=== PATIENT | male | born 1995 | race Caucasian/White ===

== ENCOUNTER 2019-03-09 12:35 | Inpatient (IN) | payer OTHER ==
[~2019-03-09] VITALS: Ht 170.1 cm; Wt 65.1 kg
[~2019-03-09 12:35] MED LIST: CHLORDIAZEPOXID25 MG PO
[2019-03-09 13:49] VITALS: BP 109/64
--- NOTE | 2019-03-09 14:13 | NUR ---
PATIENT MEETS [facility]. CINA=15. PATIENT IS LOOKING FOR RESIDENTIAL TREATENT FOR HIS AFTERCARE PLAN. [facility] STAFF PROVIDED PATIENT WITH REFERRAL OPTIONS. MARY SARKAR B.A. MAINTAINABILITY ENGINEER
--- NOTE | 2019-03-09 14:32 | NUR ---
23 year old MALE admitted to room # 518 for stabilization. 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 Compliant with admission procedure. Patient denies any anxiety, but is unable to sit still, taps toes to floor continuously, looks about room, unable to focus eyes on nurse during interview. See assessment forms for additional information about patient status.
[2019-03-09 14:45] LABS: BASO % 0.5 % (0.0-1.0); EOS # 0.1 10*3/uL (0.0-0.4); EOS % 0.6 % (1.0-4.0); HEMATOCRIT 36.7 % (42.0-52.0); HEMOGLOBIN 11.4 g/dl (14.0-18.0); LYMPH # 1.8 10*3/uL (1.3-4.4); LYMPH % 21.5 % (27.0-41.0); MEAN CORPUSCULAR HGB 26.4 pg (27.0-31.0); MEAN CORPUSCULAR HGB CONC 31.1 g/dl (33.0-37.0); MONO % 11.9 % (3.0-9.0); NEUT # 5.5 10*3/uL (2.3-7.9); NEUT % 65.4 % (47.0-73.0); PLATELET COUNT AUTOMATED 201 10*3/uL (130-400); RED BLOOD COUNT 4.32 10*6/uL (4.50-5.90); RED CELL DISTRI WIDTH 15.1 % (0-14.5); WHITE BLOOD COUNT 8.4 10*3/uL (4.8-10.8)
[2019-03-09 14:59] LABS: ALBUMIN 3.6 gm/dl (3.1-4.5); ALKALINE PHOSPHATASE 57 U/L (45-117); BUN 7 mg/dl (7-24); CHLORIDE 106 mmol/L (98-107); CREATININE 0.77 mg/dL (0.70-1.30); POTASSIUM 3.6 mmol/L (3.5-5.1); SGOT/AST 19 IU/L (3-35); SGPT/ALT 23 U/L (12-78); SODIUM 140 mmol/L (136-145); TOTAL PROTEIN 7.4 gm/dL (6.4-8.2)
[2019-03-09 15:00] LABS: ETHYL ALCOHOL < 3.0 mg/dl (<3)
[2019-03-09 16:00] VITALS: BP 117/62
[2019-03-09 16:07] LABS: BILIRUBIN NEGATIVE (NEGATIVE); BLOOD NEGATIVE (NEGATIVE); CLARITY CLEAR (CLEAR); COLOR YELLOW (YELLOW); GLUCOSE NEGATIVE (NEGATIVE); KETONE NEGATIVE (NEGATIVE); LEUKO ESTERASE NEGATIVE (NEGATIVE); NITRITE NEGATIVE (NEGATIVE); PH 6.5 (5.0-9.0); UROBILINOGEN 0.2 E.U./dl (0.2-1.0)
[2019-03-09 16:11] LABS: URINE AMPHETAMINES < 1000 (1000ng/ml); URINE BARBITURATES > 200 (200ng/ml); URINE BENZODIAZEPINES < 200 (200ng/ml); URINE CANNABINOIDS (THC) < 50 (50ng/ml); URINE COCAINE > 300 (300ng/ml); URINE METHADONE < 300 (300ng/ml); URINE OPIATES > 300 (300ng/ml)
[2019-03-09 16:12] LABS: URINE PHENCYCLIDINE < 25 (25ng/ml)
[2019-03-09 16:43] LABS: EPITHELIAL CELLS 0-2; MUCOUS 2+
[2019-03-09 16:44] LABS: WBC 0-2 wbc/hpf (0-5)
[2019-03-09 20:00] VITALS: BP 120/66
--- NOTE | 2019-03-09 20:06 | NUR ---
MAALOX GIVEN PER PATIENT REQUEST FOR COMPLAINTS OF NAUSEA. WILL ASSESS EFFECTIVENESS.
--- NOTE | 2019-03-09 21:00 | NUR ---
PATIENT STATED MAALOX WAS EFFECTIVE.
--- NOTE | 2019-03-09 22:21 | NUR ---
PATIENT COMPLAINED OF ABDOMINAL PAIN, INSOMNIA, MUSCLE SPASMS, AND ANXIETY. BENTYL, TRAZODONE, ROBAXIN, AND VISTARIL GIVEN PER PATIENT REQUEST. WILL ASSESS EFFECTIVENESS.
--- NOTE | 2019-03-09 23:28 | NUR ---
PRN MEDS SLIGHTLY EFFECTIVE PER PATIENT. WILL CONTINUE TO MONITOR.
[2019-03-10] VITALS: BP 109/59
--- NOTE | 2019-03-10 02:37 | NUR ---
Patient resting quietly with no c/o discomfort. Respirations easy and regular. Vital signs stable. No overt distress. NATALIE MONTOYA
[2019-03-10 08:00] VITALS: BP 112/64
--- NOTE | 2019-03-10 10:18 | NUR ---
[facility] STAFF IN WITH PATIENT TO WORK WITH HIM ON HIS AFTERCARE PLAN. PATIENT IS STILL UNDECIDED. [facility] STAFF PROVIDED PATIENT WITH OPTIONS WITH NO SUCCESS. [facility] STAFF WILL PROVIDE PATIENT WITH A LIST OF AA/NA MEETINGS AND AFTERCARE RESOURCES IN HIS AREA. [facility] STAFF WILL FOLLOW UP WITH PATIENT. MARY SARKAR B.A. FLEXO OPERATOR
--- NOTE | 2019-03-10 10:26 | NUR ---
PT REFUSES HIV SCREENING.
--- NOTE | 2019-03-10 14:00 | NUR ---
PATIENT LEFT AMA. TRIED TO CONVICE HIM TO RECIEVE TREATMENT, HE REFUSED.
== END 2019-03-10 14:02 | disposition left against medical advice (07) | DRG 770 ==
LOC: 5E 12:35
PROVIDERS: Registered Nurse; ADMIT Emergency Medicine
DX: F11.23 Opioid dependence with withdrawal (principal); F14.10 Cocaine abuse, uncomplicated; F41.9 Anxiety disorder, unspecified; F17.210 Nicotine dependence, cigarettes, uncomplicated; B19.20 Unspecified viral hepatitis C without hepatic coma; Z53.29 Procedure and treatment not carried out because of patient's decision for other reasons; Z88.8 Allergy status to other drugs, medicaments and biological substances